=== PATIENT | male | born 1980 | race Caucasian/White ===

== ENCOUNTER 2024-02-15 19:19 | Emergency (ER) | payer BC, SELFPAY ==
--- NOTE | ~2024-02-15 | XR_ITS ---
XR ankle RT min 3V Ordering provider: Angel Pereira MD History: . ankle pain/ injury . Comparison: None. FINDINGS: BONES: No acute fracture or dislocation. JOINT SPACES: Normal. SOFT TISSUES: Soft tissue swelling over the lateral and medial malleoli. Early calcaneal spur. Ossification of the insertion of the tendo Achilles. IMPRESSION: No acute osseous abnormality of the right ankle. Reviewed, dictated and finalized at location A. MECHANIC HELPER
[2024-02-15 19:21] VITALS: BP 152/100; PULSE 120; RESP 20; TEMP 36.3; O2SAT 97
[2024-02-15 21:50] VITALS: BP 122/86; PULSE 101; RESP 95; TEMP 37.3; O2SAT 95
--- NOTE | 2024-02-15 22:19 | ED.LOWEXIN ---
HPI - Extremity Injury (Lower) General Chief Complaint: Extremity Injury, Lower Stated Complaint: R ankle pain, swelling Time Seen by Provider: 02/15/24 21:38 Source: patient Mode of arrival: ambulatory Limitations: no limitations History of Present Illness HPI Narrative: This is a 43-year-old male who presents to the ED for chief complaint of right ankle pain and swelling x 3-4 days. Reports that this started the morning after he was helping a friend push a car up hill. He did not have any specific trauma or injury to the ankle but noticed the pain had been increasing. Pain is certainly worse with ambulation but states that he has been able to ambulate with some difficulty. denies fevers, chills, numbness, weakness. Related Data Allergies Allergy/AdvReac Type Severity Reaction Status Date / Time No Known Allergies Allergy Verified 02/15/24 19:20 Review of Systems Review of Systems: All systems as dictated in HPI Exam Narrative: GENERAL: Well-appearing, well-nourished, and in no acute distress. MSK: RLE: tenderness along the Achilles tendon distally. Tenderness throughout the ankle joint medially and laterally. Mild ankle joint swelling. Bilateral lower extremities have edema present. No erythema. No exquisite tenderness. Able to range the ankle fully passively. Neurovascularly intact distally . Gonzales test negative LLE: Benign Ambulatory without assistance SKIN: Warm, dry, no rash. NEURO: Alert and oriented x4. No focal deficits. PSYCH: Normal mood and affect. Course Vital Signs Vital signs: Vital Signs Temperature 97.3 F L 02/15/24 19:21 Pulse Rate 120 H 02/15/24 19:21 Respiratory Rate 20 02/15/24 19:21 Blood Pressure 152/100 H 02/15/24 19:21 Pulse Oximetry 97 02/15/24 19:21 Oxygen Delivery Room Air 02/15/24 19:21 Temperature 99.1 F 02/15/24 21:50 Pulse Rate 101 H 02/15/24 21:50 Respiratory Rate 95 H 02/15/24 21:50 Blood Pressure 122/86 02/15/24 21:50 Pulse Oximetry 95 02/15/24 21:50 Oxygen Delivery Room Air 02/15/24 19:21 MDM - Extremity Injury (Lower) MDM Narrative Medical decision making narrative: This is a 43-year-old male who presents to the ED for chief complaint of right ankle pain and swelling for 4 days. Vitals show initial tachycardia but otherwise unremarkable. Exam shows point tenderness to the medial, lateral ankle as well as distal Achilles tendon. The joint appears stable. Gonzales test negative. no evidence of inflammatory or septic arthritis on exam. Able to fully range the joint passively. x-rays show no acute osseous findings. Suspect musculoskeletal strains /sprains. Patient was given crutches and Jerry wrap. Toradol IM given here. Patient will be discharged in stable condition. Supportive measures discussed and return precautions given. Patient is understanding and agreeable with plan for discharge with PCP follow-up. Discharge Plan Discharge Clinical Impression: Ankle sprain and strain, Strain of Achilles tendon Patient Disposition: Home, Self-Care Condition: Stable Instructions: Antibiotic Form Additional Instructions: exam and imaging today do not show any fractures. This is probably soft tissue injury to the ankle ligaments and Achilles tendon. Please use Jerry wrap and crutches for assistance with ambulation. Contact primary care doctor for walking boot. Take naproxen 500 mg twice per day for pain relief. You could also take Tylenol every 6 hours. If you have any new or worsening symptoms please return to the ER for further evaluation. Prescriptions: New naproxen 500 mg tablet 500 mg PO BID PRN (Reason: pain) Qty: 30 0RF Follow-up/Referrals: UNKNOWN,DOCTOR [Primary Care Provider] - Time of Disposition: 22:22
[2024-02-15] MEDS: KETOROLAC 30 MG/ML VIAL (*BKC) IM (23:09)
== END 2024-02-15 23:30 | disposition home or self-care (01) ==
PROVIDERS: Emergency Provider Physician Assistant
DX: S93.401A Sprain of unspecified ligament of right ankle, initial encounter (principal); S86.011A Strain of right Achilles tendon, initial encounter; X50.0XXA Overexertion from strenuous movement or load, initial encounter
CPT/HCPCS: 73610; 96372; 99283; J1885

== ENCOUNTER 2025-02-08 13:26 | Emergency (ER) | payer BC, SELFPAY ==
--- NOTE | ~2025-02-08 | CT_ITS ---
EXAMINATION: CT lumbar spine wo con DATE: 02/08/2025 15:45 INDICATION: Low back pain. TECHNIQUE: Computed tomography (CT) of the lumbar spine was performed without intravenous contrast. Automated exposure control and iterative reconstruction technique were employed. The dose-length product was 1639.71 mGy-cm. COMPARISON: Thoracic spine radiographs 12/05/2018 FINDINGS: There is diffuse hepatic steatosis. Alignment is normal. L5 is a transitional segment. There is mild chronic anterior wedging of multiple thoracic vertebral bodies. There is mildly decreased disc height at L4-L5. The central spinal canal is developmentally small. The following disc levels are specifically discussed: L1-L2: The disc does not extend beyond the endplate margin. There is mild bilateral facet joint osteoarthritis. There is no neural foraminal stenosis. There is no central canal stenosis. L2-L3: The disc does not extend beyond the endplate margin. There is mild bilateral facet joint osteoarthritis. There is no neural foraminal stenosis. There is mild central canal stenosis. L3-L4: The disc does not extend beyond the endplate margin. There is mild bilateral facet joint osteoarthritis. There is no neural foraminal stenosis. There is mild central canal stenosis. L4-L5: The disc is bulging. There is mild bilateral facet joint osteoarthritis. There is moderate right and mild left neural foraminal stenosis. There is mild central canal stenosis. L5-S1: The disc does not extend beyond the endplate margin. There is severe bilateral facet joint osteoarthritis. There is no neural foraminal stenosis. There is no central canal stenosis. IMPRESSION: 1. Moderate lumbar spondylosis. Reviewed, dictated and finalized at location E. ICES ACCOUNT MANAGER
[2025-02-08 13:33] VITALS: BP 133/94; PULSE 108; RESP 18; TEMP 36.5; O2SAT 98
--- NOTE | 2025-02-08 15:30 | ED_ITS ---
HPI - Back Pain/Injury General Chief Complaint: Back Pain/Injury Stated Complaint: lower back pain, not able to move Time Seen by Provider: 02/08/25 14:14 Source: patient Mode of arrival: ambulatory Limitations: no limitations History of Present Illness HPI Narrative: This is a 44-year-old male that presents to the emergency department for low back pain. Ongoing since yesterday. No known injury or trauma. Worse with movement and relieved with rest. Denies saddle anesthesia, bowel/bladder incontinence. Related Data Allergies Allergy/AdvReac Type Severity Reaction Status Date / Time No Known Allergies Allergy Verified 02/08/25 13:31 Review of Systems Review of Systems: All systems reviewed & are unremarkable except as noted in HPI and below Exam Narrative: GENERAL: Well-appearing, well-nourished, and in no acute distress. HEAD: Normocephalic, atraumatic. EYES: EOMI. CHEST: Clear to auscultation. No respiratory distress. No wheezes rales or rhonchi HEART: Regular rate and rhythm. No murmur heard. Normal peripheral pulses. EXTREMITIES: Normal range of motion. No edema. Strength equal in bilateral lower extremities (5/5) SKIN: Warm, dry, no rash. NEURO: No focal deficits. Alert and oriented x3. PSYCH: Normal mood and affect Course Vital Signs Vital signs: Vital Signs Temperature 97.7 F 02/08/25 13:33 Pulse Rate 108 H 02/08/25 13:33 Respiratory Rate 18 02/08/25 13:33 Blood Pressure 133/94 H 02/08/25 13:33 Pulse Oximetry 98 02/08/25 13:33 Temperature 97.7 F 02/08/25 13:33 Pulse Rate 108 H 02/08/25 13:33 Respiratory Rate 18 02/08/25 13:33 Blood Pressure 133/94 H 02/08/25 13:33 Pulse Oximetry 98 02/08/25 13:33 MDM - Back Pain/Injury MDM Narrative Medical decision making narrative: Patient presents to the emergency department for low back pain. No recent injury or trauma. Denies saddle anesthesia, bowel/bladder incontinence. Patient is neurologically intact. CT lumbar spine showing moderate lumbar spondylosis. Patient updated on his workup. Agrees with plan of care. Will follow up with PCP Differential Diagnosis Differential diagnosis: Likely lumbar radiculopathy, sciatica, strain of lumbar region and other (Osteoarthritis, degenerative disc disease) Imaging Data Radiologist's impression: ITS Impressions Lumbar Spine CT 02/08/25 16:04 IMPRESSION: 1. Moderate lumbar spondylosis. Critical Care Time Critical Care Time Critical Care Time: No Discharge Plan Discharge Clinical Impression: Low back pain Qualifiers: Chronicity: acute Back pain laterality: midline Sciatica presence: without sciatica Qualified Code(s): M54.50 - Low back pain, unspecified Patient Disposition: Home Condition: Stable Instructions: Acute Low Back Pain (ED) Additional Instructions: Return to the ER if you experience weakness, numbness, bowel/bladder incontinence, or any other symptoms that are concerning to you Rest, use ice/heat, take anti-inflammatories (Aleve, Ibuprofen, Naproxen, etc) or Tylenol as needed for pain as well as muscle relaxer (Flexeril) as needed for pain. Muscle relaxers can make you drowsy, do not drive if you take this Follow up with your primary care doctor Patient Language: Chinese Prescriptions: New cyclobenzaprine 10 mg tablet 10 mg PO TID PRN (Reason: muscle spasm) Qty: 14 0RF lidocaine 5 % adhesive patch,medicated 1 patch topical DAILY Qty: 15 0RF Rx Instructions: leave on most painful area for up to 12 hrs No Action naproxen 500 mg tablet 500 mg PO BID PRN (Reason: pain) Qty: 30 0RF Follow-up/Referrals: Gray Shearer MD [Primary Care Provider, Family Practice] Stand Alone Forms: Work/School Release IP
[2025-02-08] MEDS: LIDOCAINE 5% PATCH 1 PATCH TRANSDERM (15:56)
[2025-02-08] MEDS: KETOROLAC 30 MG/ML VIAL (*BKC) IM (15:56)
[2025-02-08] MEDS: ACETAMINOPHEN 500 MG TABLET 1000 MG PO (15:56)
== END 2025-02-08 17:55 | disposition home or self-care (01) ==
PROVIDERS: Emergency Provider Physician Assistant; PCP Emergency Medicine
DX: M54.50 Low back pain, unspecified (principal); M47.816 Spondylosis without myelopathy or radiculopathy, lumbar region
CPT/HCPCS: 72131; 96372; 99284; A9270; J1885